=== PATIENT | female | born 1965 | race Caucasian/White ===

== ENCOUNTER 2023-02-07 12:56 | Emergency (ER) | payer MEDICAID ==
[~2023-02-07] VITALS: Ht 160 cm; Wt 86.0 kg
[2023-02-07 13:44] VITALS: BP 162/86
[2023-02-07] MEDS ORDERED: AMLO5TAB88 PO (14:34)
[2023-02-07] MEDS ORDERED: AMLODIPINE 5MG TABLET PO ONE (14:45)
== END 2023-02-07 15:01 | disposition home or self-care (01) ==
LOC: ER 12:56
DX: R04.0 Epistaxis (principal); Z98.890 Other specified postprocedural states
CPT/HCPCS: 99283

== ENCOUNTER 2023-02-10 12:52 | Emergency (ER) | payer MEDICAID ==
[~2023-02-10] VITALS: Ht 160 cm; Wt 88.0 kg
[~2023-02-10 12:52] MED LIST: AMLO5TAB88 PO
[2023-02-10 13:06] VITALS: BP 120/69
== END 2023-02-10 16:08 | disposition home or self-care (01) ==
LOC: ER 12:52
DX: R04.0 Epistaxis (principal); Z98.890 Other specified postprocedural states
CPT/HCPCS: 30901; 99284

== ENCOUNTER 2024-08-06 17:46 | Emergency (ER) | payer MEDICAID ==
[~2024-08-06] VITALS: Ht 160 cm; Wt 73.0 kg
[2024-08-06 18:00] VITALS: O2SAT 96
[2024-08-06 21:05] LABS: MEAN CORPUSCULAR HEMOGLOBIN 23.3 pg (28.0-32.0); MEAN CORPUSCULAR HGB CONC 29.3 g/dL (31.0-37.0); MEAN CORPUSCULAR VOLUME 79.4 fL (81.0-99.0); PLATELET 225 x1000/uL (130-400); RED BLOOD CELL COUNT 3.02 mill/uL (4.2-5.4); RED CELL DISTRIBUTION WIDTH 20.3 % (11.6-14.6)
[2024-08-06 21:13] LABS: CHLORIDE 102 mEq/L (98-107); POTASSIUM 3.7 mEq/L (3.5-5.1); SODIUM 136 mEq/L (136-145)
[2024-08-06 21:14] LABS: CALCIUM 9.4 mg/dL (8.7-10.4); CARBON DIOXIDE 26 mEq/L (21-32)
[2024-08-06 21:19] LABS: CREATININE 0.8 mg/dL (0.6-1.0); GLUCOSE 79 mg/dL (70-105); UREA NITROGEN BLOOD 8 mg/dL (9-23)
[2024-08-06] MEDS ORDERED: FERR-71 MT (22:22)
[2024-08-07 01:15] VITALS: BP 146/73; PULSE 89; RESP 18; TEMP 37.11408; O2SAT 99
== END 2024-08-07 01:44 | disposition home or self-care (01) ==
LOC: ER 17:46
DX: D64.9 Anemia, unspecified (principal); Z98.890 Other specified postprocedural states
CPT/HCPCS: 80048; 85027; 86850; 86900; 86901; 86920; 36415; 99291; Z7610 ×2; 36430; P9016